=== PATIENT | female | born 1940 | race Caucasian/White ===

== ENCOUNTER 2023-08-13 13:06 | Inpatient (IN) | payer MEDICARE, OTHER, SELFPAY ==
[2023-08-09 11:03] VITALS: BMI 32.5
[2023-08-13] VITALS (24 sets, daily range): BP systolic 90–148; BP diastolic 42–85; BMI 30.8
--- NOTE | 2023-08-13 07:19 | PTCARENOTE ---
Pt arrived today for a PVI. Pt's lungs were clear upon arrival with a pulse ox of 92-93% on room air. As patient has been laying down in stretcher with head of bed elevated, pt has begun having audible wheezing and pulse ox dropping to 85% on room
air. Pt denies feeling SOB. No respiratory distress noted. + loose cough. Dr Mcintosh made aware via tiger text and Sissy NICHOLS at pt bedside assessing pt. Sissy NICHOLS states she spoke to Dr Carrasco who ordered a nebulizer. 4L NC applied. Respiratory
made aware. Awaiting treatment.
--- NOTE | 2023-08-13 07:48 | PTCARENOTE ---
Respiratory therapist at pt bedside administering nebulizer treatment.
[2023-08-13] MEDS: VENTOLIN NEBULES 2.5 MG INH ×2 (07:49→11:22)
--- NOTE | 2023-08-13 07:57 | PTCARENOTE ---
Addendum entered by Denice Guzman RN 08/13/23 08:02:
Pulse ox 88-91% on room air post nebulizer treatment. Pt continues with occasional loose cough. Awaiting to hear from Dr Mcintosh, anesthesia, to see if procedure will proceed. Will continue to monitor.
Original Note:
Nebulizer complete. Lungs with some scattered expiratory wheezes post nebulizer treatment. Dr Carrasco at pt bedside assessing pt. Will continue to monitor.
--- NOTE | 2023-08-13 08:05 | PTCARENOTE ---
Dr Mcintosh stating ok to proceed with procedure. EP staff made aware.
--- NOTE | 2023-08-13 08:29 | ITS.CL.ABL ---
Turbinated Bone Grinder - Ablation
Ablation
Procedure Report:
ELECTROPHYSIOLOGIC STUDY AND POSSIBLE ABLATION
DATE: August 13, 2023 � � � � � � � � � � � � �
Primary cook supervisor: Dr. Yinka Milan
INDICATION:
Symptomatic Atrial Fibrillation.
Persistent
HISTORY: See H and P.�
Symptomatic AF, poorly controlled with attempted medical therapy.
Underwent initial PVI October 14, 2018.� Did well for several years but has recurred with symptomatic atrial fibrillation poorly controlled with antiarrhythmic drug therapy, sotalol. She then underwent ablation October 2022.
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 Additionally she underwent left atrial posterior wall ablation resulting in both entrance and exit block of the
posterior wall. Programmed electrical stimulation then induced reentrant left atrial tachycardia which was mapped to the dome of the left atrium anteriorly at cycle length 420 ms which was successfully mapped and ablated with RF energy. Continued
programmed electrical stimulation then induced another left atrial tachycardia at a faster cycle length of 360 ms which was mapped as a micro reentrant atrial tachycardia just anterior to the ostium of the left atrial appendage. During RF ablation
this degenerated into atrial fibrillation which then required cardioversion.
She has developed symptomatic atrial tachycardia, poorly tolerating amiodarone and presents for mapping and ablation as well as consideration for antiarrhythmic drug loading post ablation with either sotalol or dofetilide (amiodarone was
discontinued 10 days ago).
HAS-BLED: 1
Age
CHADSVASc: 4
HTN
Age
F Gender
PRESENTING RHYTHM:� AF
HISTORY: See H and P.�
Symptomatic AF, poorly controlled with attempted medical therapy.
ANTIARRHYTHMIC DRUG: Sotalol discontinued 3 days prior
ANTICOAGULATION: DOAC
'TIME-OUT':� called and confirmed.
SEDATION/ANESTHESIA:� provided via the anesthesia department using general anesthesia.
PROCEDURE:
Ultrasound Guidance performed by wi was utilized for femoral venous Vascular Access b/l.
A decapolar CS catheter was placed within the CS for mapping and pacing.�
The intracardiac ultrasound catheter was positioned in the RA for continuous intracardiac ultrasound imaging.
Heparin bolus and infusion to target ACT at 300 -350 seconds was administered.� Transseptal puncture was performed.� This entailed advancing a sheath with dilator into the superior vena cava and withdrawing both (monitoring intracardiac ultrasound,
fluoroscopy and tip pressure) with the tip oriented toward the atrial septum.� The fossa ovalis was engaged (indicated by sudden displacement of the sheath tip as well as tenting of the fossa seen on intracardiac ultrasound).� Left atrial access
required a pass with the Brockenbrough needle extended.� Left atrial catheter position was confirmed by pressure monitoring as well as fluoroscopy. The sheath was advanced over the dilator and positioned in the left atrium.� The [employer]
multipolar mapping catheter was initially positioned through the transseptal sheath for high density mapping. The ablation catheter was then substituted. �
A 3-D map was created using Navex.� A 3-D reconstructed CT image was compared to the 3-D Navex map to assist in anatomic evaluation, mapping and ablation.
Mapping initially demonstrates atrial fibrillation which was cardioverted to sinus rhythm and electroanatomical mapping was begun. During mapping a somewhat irregular left atrial tachycardia with cycle length between 400 and 420 ms occurred.
During continued mapping tachycardia changed to a faster cycle length of 320 ms and more irregular. Mapping demonstrated complete isolation of the posterior wall of the left atrium as well as complete isolation of the pulmonary veins and a wide
area circumferential fashion. There is an area of marked fractionation along the left atrial septal wall just anterior to the joao of the right sided pulmonary veins. This is the proposed target for recurrence of atrial fibrillation and for her
atrial tachycardia. This area was ablated using a 4 mm irrigated contact sensing catheter at 30 W achieving LSI of 5 with each lesion. With each RF application, high output pacing was performed to avoid proximity to the phrenic nerve. At no point
was phrenic nerve activation present in any of the targeted areas. Cardioversion then restored sinus rhythm. Once again well mapping and irregular atrial tachycardia occurred with vacillating cycle length on the coronary sinus catheter sometimes
proximal to distal sometimes distal to proximal. There were periods where this settled into a more regular tachycardia proximal to distal at 420 ms. At this point the right atrium was mapped with the [employer] multipolar grid catheter but during
mapping of tachycardia degenerated into a very irregular rhythm and then atrial fibrillation. There is no identifiable target in the right atrium.
Next, cardioversion restored sinus rhythm.
An esophageal temperature probe was positioned at the level of the mid LA to delineate the course of the esophagus as well as monitor for any significant temperature increases during RF delivery. No posterior lesions were delivered. There is no
change in luminal esophageal temperature recordings.
� � �
� � � � � I.C.E. :
�� � � � � � � � � � � � � � � � � � � Pre-Ablation� � � � � � � � � Post-Ablation� � � � �
LVEF:� � � � � � � � � � � � � � � � � 55 %� � � � � � � � � � � � � � � 55 %
WMA: � � � � � � � � � � � � � � � � none� � � � � � � � � � � � � � � none
Pericardial effusion: � � � � � � none� � � � � � � � � � � � � � � none
COMPLICATIONS:
None
SUMMARY:�
- Mapping and ablation of atrial fibrillation
- Mapping and ablation of second tachycardia
- 3-D Electroanatomical Mapping
- Intracardiac Ultrasound
Post ablation, I discussed today's findings and results with the patient's significant other, Jt.
RECOMMENDATIONS:
- Observe in monitored bed.
- Maintain oral anticoagulation.
- Initiate dofetilide 500 mcg twice daily (corrected QT interval is 470 ms and GFR is greater than 50)
-Monitor corrected QT interval via serial EKGs as per protocol
-Monitor renal function closely, keep magnesium between 2 and 3 and potassium between 4 and 5
-Adjust dofetilide dosing accordingly as we monitor renal function and corrected QT interval
- Left atrial pressure is elevated with LA pressure of 20 mmHg.
-Lasix 20 mg IV now (she is typically on 20 mg p.o. as needed, typically needed when she develops atrial fibrillation)
- Office visit with me in 3 months.
- Continue cardiovascular care with Dr Milan
Copy to: Dr. Yinka Milan
[2023-08-13 09:20] LABS: ACT-LR - POC 329 Seconds (116-155)
[2023-08-13 09:41] LABS: ACT-LR - POC 355 Seconds (116-155)
--- NOTE | 2023-08-13 09:58 | W.CARD.TIKOS ---
Initiate Tikosyn
-
I verify that the patient has not taken any verapamil (Isoptin/Calan), ketoconazole (Nizoral), cimetidine (Tagamet), trimethoprim (Trimpex), trimethoprim/sulfamethoxazole (Bactrim), megesterol (Megace), prochlorperazine (Compazine),
hydrochlorothiazide (HCTZ), dolutegravir (Tivicay) or any Class I or Class III anti-arrhythmic within the last three days
AND
I verify that the patient has not taken amiodarone within the last THREE months, or that the patient's amiodarone plasma concentration is <0.3 mcg/mL.
(Last dose amiodarone 08/02/23, OK to start Tikosyn per Dr. Christofer Carrasco)
Does patient have a Ventricular Conduction Abnormality: No
I have assessed the baseline QTc interval (using QT for heart rate less than 60 bpm) and deemed the patient is appropriate for Dofetilide therapy. I understand that Tikosyn is contraindicated if the QTc is >440msec (500msec in patients with
ventricular conduction abnormalities).
Baseline QTc (in msec): 474
QTc interval is greater than 440msec without conduction abnormality OR greater than 500msec with a conduction abnormality, but acceptable to proceed per Cardiology attending.
Reason for Administration with Prolonged QTc: Other Atrial Arrhythmia
Ordering Physician: Bhaskar Carrasco
[2023-08-13] MEDS: LASIX 20 MG IV (10:45)
--- NOTE | 2023-08-13 10:50 | PTCARENOTE ---
Addendum entered by Denice Guzman RN 08/13/23 10:51:
Added to original note. Equal strength to bilateral upper extremities. Normal dorsal and plantar flexion. Pt arrived on 6L simple mask with pulse ox 100%. Pt with audible wheezing noted on arrival to recovery room. Pt's lungs with scattered
expiratory wheezes and fine rales 1/3 up bilaterally. Nebulizer ordered and respiratory notified. EKG obtained which states critical result for prolonged QT interval. Sissy HEATH made aware and given pt's current EKG as well as previous EKG.
Sissy Salvador states to hold tikosyn at this time and repeat EKG at 12 noon to determine if ok to give pt tikosyn. Lasix to be given as ordered. Will continue to monitor.
Original Note:
Received pt from PVI procedure drowsy but easily arousable. Pt quickly became awake, alert, and oriented x3, LUNDY. Pt following commands. Pt's speech is clear and appropriate. Pupils 3mm equal and reactive .
--- NOTE | 2023-08-13 11:24 | PTCARENOTE ---
Respiratory therapist at pt bedside administering nebulizer treatment.
--- NOTE | 2023-08-13 11:29 | PTCARENOTE ---
Pt appears to be going in and out of SR with PAC's and afib on bedside air sampling and monitoring. Pt also appears to have some inverted P waves at times while in SR. Sissy NICHOLS made aware and in to evaluate pt. Pt asymptomatic. Sissy NICHOLS states to obtain EKG at
scheduled 12:00 time. Will continue to monitor.
[2023-08-13] MEDS: TIKOSYN 500 MCG PO ×2 (13:18→22:00)
--- NOTE | 2023-08-13 13:33 | PTCARENOTE ---
received pt from [facility] into 2253, afib on tele w HR 88, bp 119/84, pox 96-98% on 3L NC- decreased to 2L. Pt denies CP or SOB. Tikosyn administered as ordered. plan of care reviewed and questions encouraged.
--- NOTE | 2023-08-13 14:20 | PTCARENOTE ---
figure 8 sutures removed
--- NOTE | 2023-08-13 16:01 | PTCARENOTE ---
pt was assisted OOB without incident.
[2023-08-13] MEDS: ELIQUIS 5 MG PO (16:41)
--- NOTE | 2023-08-13 20:00 | PTCARENOTE ---
assumed care of pt from previous RN. pt A&Ox4, independent in room. no c/o pain at this time. A fib on tele-monitor, HR 90s-100s. POX 92% on RA. lungs clear to auscultation. PIV intact. plan of care discussed w/ pt, pt verbalizes understanding. see
worklist for complete nursing assessment, interventions, VS, and I&Os.
[2023-08-13] MEDS: TOPROL XL 75 MG PO (20:56)
[2023-08-14] VITALS (8 sets, daily range): BP systolic 92–146; BP diastolic 66–108
[2023-08-14] MEDS: VENTOLIN NEBULES 2.5 MG INH ×2 (00:06→09:19)
[2023-08-14 04:07] LABS: Hematocrit 28.7 % (37.0-47.0); Hemoglobin 9.5 g/dL (12.0-16.0); Mean Corp Hgb Conc. 33.1 g/dL (33.0-37.0); Mean Corpuscular Hgb 29.2 pg (27.0-31.0); Mean Corpuscular Volume 88.3 fL (81.0-99.0); Mean Platelet Volume 8.8 fL (7.4-10.4); Platelet Count 167 10^3/uL (130-400); Red Blood Cell Count 3.25 10^6/uL (4.20-5.40); Red Cell Dist. Width 16.8 % (11.5-14.5); White Blood Cell Count 7.4 10^3/uL (4.8-10.8)
[2023-08-14 04:45] LABS: Blood Urea Nitrogen 22 mg/dl (7-17); Calcium 8.2 mg/dl (8.4-10.2); Carbon Dioxide 28 mmol/L (22-30); Chloride 102 mmol/L (98-107); Estimated Creatinine Clearance 48 ml/min; Glucose 87 mg/dl (70-99); Magnesium 2.1 mg/dl (1.6-2.3); Sodium 135 mmol/L (135-145); eGFR > 60.00
[2023-08-14] MEDS: ARIMIDEX 1 MG PO (08:13)
[2023-08-14] MEDS: LASIX 20 MG PO (08:13)
[2023-08-14] MEDS: ELIQUIS 5 MG PO ×2 (08:13→20:13)
[2023-08-14] MEDS: NORVASC 2.5 MG PO (08:14)
[2023-08-14] MEDS: TOPROL XL 75 MG PO (08:14)
[2023-08-14] MEDS: TIKOSYN 500 MCG PO ×2 (08:14→20:13)
[2023-08-14] MEDS: COZAAR 100 MG PO (08:14)
--- NOTE | 2023-08-14 08:40 | W.PN.CARDCBS ---
Today's Communication / Plan
-
Tikosyn #3 and 4 today
monitor QTc, tele
NPO for possible CVN in AM
PA/LAT CXR
supplemental O2 w/ATC albuterol MN
covid swab
Impression / Plan
-
PCP: Roman Luke MD
CDY: Yinka Milan MD
82 y/o, PMH sig for PAF w/prior PVI 09/2018, redo PVI with Left AT RFA in 10/2022, now presents with recurrent symptomatic AF/AT, associated w/dyspnea, LE edema. [id number]=5, maintained on eliquis. Had been taking amiodarone recently, just stopped
on 08/03/23. In holding pre-procedure, she developed hypoxia with wheezing, congestion and cough, O2 sat down to mid 80s. Supplemental O2 applied and given albuterol mn with improved O2 sats and breathing. She admits to a recent cold with a cough
about a week ago, but has felt fine since, and has no history of pulmonary issues, non smoker.
Presented to EP lab- s/p redo PVI with mapping demonstrating complete isolation of pulm veins, underwent LA septal wall ablation, with some AT noted but no identifiable targets, was cardioverted in OR
Admitted post procedure for tikosyn load. She has history of prolonged QT on sotalol.
Was in SR in recovery but rhythm changed to AF w/rates low 100.
IMPRESSION:
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
Prior PVI (09/2018, redo 10/2022)
S/P Redo PVI with limited ablation, recurrent AF post procedure
Tikosyn initiation
Prolonged QT on Sotalol
Respiratory distress w/hypoxia
HTN
Chronic diastolic HFpEF
Left Breast Ca, s/p tram flap reconstruction w/resultant LUE lymphedema
PLAN:
Tele- AFib w/rates 100s
Tolerating Tikosyn- QTc <400 at this time, on dose #3 this morning
Will make NPO for possible CVN in AM if she does not convert spontaneously
Continue eliquis, metoprolol
Hypoxia noted- O2 sat mid 80s this morning on RA- audible wheezing with congestion/cough- afebrile, WBC WNL
supplemental O2 to keep SaO2>92%, CXR today, stat albuterol MN and change to QID today, check covid swab.
may need pulm consult, consider steroid course if no improvement.
One time IV lasix post procedure for moderately elevated RA pressures, will resume lasix 20mg daily- she had been taking PRN only.
monitor on tele for another 24 hours for full tikosyn load, monitor QTc with possible CVN in AM if no conversion
anticipate discharge in next 24-[address] Milan as scheduled
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
Subjective
Date of Service: August 14, 2023
C/O chest congestion, cough, dyspnea, difficulty getting a full breath
Denies cp/palps/groin pain
oob to chair, bathroom
Objective
Labs:
08/14/23 03:55
08/14/23 03:55
Labs
Hgb 9.5 g/dL (12.0-16.0) L 08/14/23 03:55
Hct 28.7 % (37.0-47.0) L 08/14/23 03:55
Plt Count 167 10^3/uL (130-400) D 08/14/23 03:55
Sodium 135 mmol/L (135-145) 08/14/23 03:55
Potassium 4.0 mmol/L (3.5-5.1) 08/14/23 03:55
BUN 22 mg/dl (7-17) H 08/14/23 03:55
Creatinine 0.9 mg/dL (0.6-1.0) 08/14/23 03:55
Glucose 87 mg/dl (70-99) 08/14/23 03:55
Vital Signs and I&O:
Vital Signs
Temp Pulse Resp BP Pulse Ox
98.3 F 102 14 136/100 91
08/14/23 07:05 08/14/23 08:14 08/14/23 07:05 08/14/23 08:14 08/14/23 07:05
Vital Signs
Temp Pulse Resp BP Pulse Ox
98.3 F 102 14 136/100 91
08/14/23 07:05 08/14/23 08:14 08/14/23 07:05 08/14/23 08:14 08/14/23 07:05
Intake & Output
08/12/23 08/13/23 08/14/23 08/15/23
06:59 06:59 06:59 06:59
Intake Total 750 / 750
Output Total 500 / 500
Balance 250 / 250
Physical Exam
Physical Exam
AAOx3, MAEE 5/5
Irreg irreg S1 S2 no murmurs, distant HS
bilateral congestion throughout with wheezing and rhonchi, audible wheezing noted without stethoscope
mild dyspnea and pulse ox 87% on RA
soft abd, + bs
bilat groin sites VINI, no ht/bleeding, non tender
bilat extremities w/palpable distal pulses, no edema
LUE w/chronic lymphedema, palpable pulse- at baseline per pt
--- NOTE | 2023-08-14 09:12 | CM ---
spoke to pt in room, she is prev indep, lives alone in a 2 story home with 4 steps to enter. she denies any dme's or dc planning needs. plan is for dc to home when medically stable.
--- NOTE | 2023-08-14 09:15 | CM ---
priced dofetilide with pts perspription plan [facility] ([phone])- ID# [id number]- dofetilide first month is $ 337.43- which includes her deductible, after that her copay is $118.10/month-
JULIÁN also checked [facility] prices as dofetilide is generic, she can get dofetilide at [facility] in [facility] for $43/month- 500mcg or $59.67 for 250mcg. she is agreeable to using [facility]. TEE Du aware to send script to [facility] in
[facility] at time of dc. cm to print [facility] coupon for pt when dose is determined.
--- NOTE | 2023-08-14 09:23 | CM ---
priced dofetilide with pts perspription plan marcus kate )- dofetilide first month is $ 337.43- which includes her deductible, after that her copay is $118.10/month-
JULIÁN also checked [facility] prices as dofetilide is generic, she can get dofetilide at [facility] in [facility] for $43/month- 500mcg or $59.67 for 250mcg. she is agreeable to using [facility]. TEE Du aware to send script to [facility] in
[facility] at time of dc. julián to print [facility] coupon for pt when dose is determined.
[2023-08-14 10:45] LABS: COVID-19 Antigen Positive (Negative)
--- NOTE | 2023-08-14 11:16 | CON.PUL ---
Consultation
Consultation Request
Date/Time Consultation Requested: 08/14/2023
Date/Time Consultation Performed: 08/14/2023
Requesting Provider: Dr. Carrasco
Performing Provider: Dr. Tacos Bo
Reason for Consultation: SARS Cov 2
Medical History
-
History of Present Illness:
82-year-old woman with history of paroxysmal atrial fibrillation, history of prior PVI in September 2018 and again on 10/2022 presented with recurrent atrial fibrillation with associated dyspnea, lower extremity swelling. Patient is already on
anticoagulation. Has been taking amiodarone in the outpatient setting.
Patient has developed hypoxemia, wheezing, congestion and coughing with oxygen saturation dropping to the mid 80s.
Patient reports 7-8 week with symptoms of URI symptoms without fevers.
Patient is a never smoker and never had any pulmonary symptoms in the past.
She was admitted for a Tikosyn load. Apparently had prior history of prolonged QT on sotalol.
COVID testing was positive. We were consulted for evaluation of this.
Chest x-ray showed marked megaly without infiltrates.
Past Medical History
Past Medical History: Other (See assessment and plan section)
Social History
Tobacco: Non-smoker
Alcohol: None
Drug: None
Family History
Family History: Reviewed & Not Pertinent
Allergies / Home Medications
Allergies
Allergy/AdvReac Type Severity Reaction Status Date / Time
banana Allergy stomach Verified 08/13/23 06:47
upset
codeine Allergy Anaphylaxis Verified 08/13/23 06:47
diltiazem [From Cardizem] Allergy Rash Verified 08/13/23 06:47
Home Medications
Medication Instructions Recorded Confirmed Last Taken Type
amlodipine 2.5 mg tablet 2.5 mg PO DAILY 10/14/18 08/13/23 08/12/23 08:00 History
apixaban 5 mg tablet (Eliquis) 5 mg PO BID 10/14/18 08/13/23 08/12/23 08:00 History
losartan 100 mg tablet 100 mg PO DAILY 10/14/18 08/13/23 08/12/23 08:00 History
multivitamin (One Daily 1 ea PO DAILY 10/14/18 08/13/23 08/12/23 06:00 History
Multivitamin tablet)
B12 1 dose IM MONTHLY 09/21/22 08/13/23 1 Week Ago History
~08/06/23
Combination Beet, Payton, Turmeric 1 gummy PO DAILY 08/13/23 08/13/23 08/12/23 06:00 History
Combination Beet, Payton, Turmeric 4 oz PO DAILY 08/13/23 08/13/23 08/12/23 06:00 History
Combination Mushroom, Reishi, 1 cap PO DAILY 08/13/23 08/13/23 08/12/23 06:00 History
Khang Dexter
anastrozole 1 mg tablet (Arimidex) 1 mg PO DAILY 08/13/23 08/13/23 08/12/23 08:00 History
calcium carbonate 600 mg calcium 600 mg PO DAILY 08/13/23 08/13/23 08/12/23 06:00 History
(1,500 mg) tablet (Calcium)
furosemide 20 mg tablet 20 mg PO DAILYPRN PRN swelling 08/13/23 08/13/23 08/12/23 12:00 History
metoprolol succinate 50 mg 75 mg PO BID 08/13/23 08/13/23 08/12/23 20:00 History
tablet,extended release 24 hr
zoledronic acid 5 mg/100 mL in 5 mg IV ONCE 08/13/23 08/13/23 11/22/22 History
mannitol 5 %-water intravenous
piggybck (Reclast)
Review of Systems
-
History Source: Patient and Coordinating Provider
Vitals / Labs / Diagnostic Testing
Vital Signs
Temp Pulse Resp BP Pulse Ox
98.3 F 106 18 136/100 91
08/14/23 07:05 08/14/23 09:21 08/14/23 09:21 08/14/23 08:14 08/14/23 07:05
Lab Data
08/14/23 03:55
08/14/23 03:55
Diagnostic Testing:
Physical Exam
-
HEENT: Normocephalic
Cardiovascular: S1/S2
Respiratory: Wheeze (Expiratory bilaterally) and Non-Labored Respirations
GI: Soft and Non Distended
Neurology: Awake and Alert
Skin: Warm
General: Respiratory Distress (n)
Assessment
-
82-year-old woman with past medical history significant for atrial fibrillation, admitted for Tikosyn load due to recurrent atrial fibrillation. Reports 1 week worth of URI symptoms, found to be short of breath, wheezing and hypoxemic.
COVID-positive. We were consulted for management of this.
SARS Cov 2 infection
>7days onset of symptoms
CXR without infiltrate
Hypoxemia - without infiltrate.
Bronchospasm
-
Conditions present prior admission:
Symptomatic atrial fibrillation
Hypertension
Chronic heart failure with preserved ejection fraction
History of left breast cancer status post reconstruction, residual left upper extremity lymphedema.
Hypertension
Obesity
-
Assessment and plan:
Patient reports that symptom onset was about 8 days ago, mainly upper airways and some shortness of breath.
Has developed bronchospasm for the last 48 hours.
Already feels better after nebulizer.
On exam with some expiratory wheezing but good air movement. No crackles.
Chest x-ray reviewed without evidence of pneumonitis.
During my evaluation pulse ox was 94% on room air.
-
Based on duration of symptoms: Paxlovid or remdesivir unlikely to offer any benefit. Usually indicated if symptoms onset less than 8 days.
-
Continue symptomatic management
Continue isolation-total of 10 days while in the hospital. Last day of isolation will be Sunday the . Patient started with symptoms on Sunday, 04 August. Discussed with primary team
Hold nebulizers while on isolation-albuterol HFA as needed will be provided PRN.
Will add Xopenex HFA 3 times a day standing dose.
Discussed with respiratory therapy.
Given bronchospasm will start prednisone at 40 mg X 2 days, 30 mg X 2 days and 20 mg X 2 days.
-
Will continue to monitor.
-
Okay to continue with cardiac management
Hopefully can perform cardioversion tomorrow.
-
Recommend short-term follow-up in the pulmonary office due to her bronchospasm.
Will follow
--- NOTE | 2023-08-14 11:20 | W.PN.UPDATE ---
Update Note
Progress Note Update
CXR with mild cardiomegaly but no active disease.
COVID swab positive.
Will consult pulmonary now.
If paxlovid is considered, will have to adjust eliquis to 2.5mg BID. Tikosyn will have to be stopped d/t prolonged QT with the combo. If this is the case, would have to return at a future date for a full tikosyn initiation.
Discussed w/Dr. Carrasco.
--- NOTE | 2023-08-14 12:00 | PTCARENOTE ---
covid test done per orders. Result came back positive. Sign placed on door and cart ordered from [facility]. Patient made aware as well as MD.
[2023-08-14] MEDS: DELTASONE 40 MG PO (13:13)
[2023-08-14] MEDS: XOPENEX HFA 45 MCG INHALER 1 PUFF INH ×2 (13:29→20:08)
--- NOTE | 2023-08-14 20:00 | PTCARENOTE ---
Addendum entered by Tiffany Peng RN 08/15/23 00:24:
Tikosyn dose #4 administered and f/u ekg obtained.
Original Note:
Assumed care of pt. Aox3. Afib. VSS. Remains on precautions d/t covid. Independent in room. Assessment per nursing flowsheet. Plan for cardioversion and possible discharge tomorrow. NPO after midnight
[2023-08-14] MEDS: TOPROL XL 100 MG PO (20:14)
[2023-08-15 04:17] VITALS: BP 132/84
[2023-08-15 04:32] LABS: Hematocrit 30.5 % (37.0-47.0); Hemoglobin 10.2 g/dL (12.0-16.0); Mean Corp Hgb Conc. 33.4 g/dL (33.0-37.0); Mean Corpuscular Hgb 29.8 pg (27.0-31.0); Mean Corpuscular Volume 89.2 fL (81.0-99.0); Mean Platelet Volume 9.2 fL (7.4-10.4); Platelet Count 211 10^3/uL (130-400); Red Blood Cell Count 3.42 10^6/uL (4.20-5.40); Red Cell Dist. Width 17.2 % (11.5-14.5); White Blood Cell Count 10.2 10^3/uL (4.8-10.8)
[2023-08-15 05:16] LABS: Blood Urea Nitrogen 21 mg/dl (7-17); Calcium 8.4 mg/dl (8.4-10.2); Carbon Dioxide 28 mmol/L (22-30); Chloride 102 mmol/L (98-107); Estimated Creatinine Clearance 54 ml/min; Glucose 110 mg/dl (70-99); Magnesium 2.2 mg/dl (1.6-2.3); Potassium 4.1 mmol/L (3.5-5.1); Sodium 138 mmol/L (135-145); eGFR > 60.00
[2023-08-15] MEDS: XOPENEX HFA 45 MCG INHALER 1 PUFF INH ×2 (07:09→12:22)
[2023-08-15 08:11] VITALS: BP 138/100
[2023-08-15] MEDS: NORVASC 2.5 MG PO (08:17)
[2023-08-15] MEDS: COZAAR 100 MG PO (08:17)
[2023-08-15] MEDS: LASIX 20 MG PO (08:17)
[2023-08-15] MEDS: TIKOSYN 500 MCG PO (08:17)
[2023-08-15] MEDS: TOPROL XL 100 MG PO (08:18)
[2023-08-15] MEDS: DELTASONE 40 MG PO (08:18)
[2023-08-15] MEDS: ARIMIDEX 1 MG PO (08:18)
[2023-08-15] MEDS: ELIQUIS 5 MG PO (08:19)
--- NOTE | 2023-08-15 09:04 | PTCARENOTE ---
Rec'd pt AAOx3 w/no c/o CP at this time. Pt is mildly dyspneic on exertion, but reports 'feeling better after getting breathing treatments & the oral steroids'. 5th dose of PO Tikosyn administered as ordered & Dr Carrasco in to see pt re: plan for
cardioversion this AM. Pt NPO since midnight in preparation for procedure. 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 Pt w/call quinonez within reach & plan of care ongoing.
--- NOTE | 2023-08-15 09:27 | W.PN.CARDCBS ---
Today's Communication / Plan
-
continue Tikosyn loading
DCCV today
plan for d/c home this afternoon
Impression / Plan
-
PCP: Roman Luke MD
CDY: Yinka Milan MD
82 y/o, PMH sig for PAF w/prior PVI 09/2018, redo PVI with Left AT RFA in 10/2022, now presents with recurrent symptomatic AF/AT, associated w/dyspnea, LE edema. [id number]=1, maintained on eliquis. Had been taking amiodarone recently, just stopped
on 08/03/23. In holding pre-procedure, she developed hypoxia with wheezing, congestion and cough, O2 sat down to mid 80s. Supplemental O2 applied and given albuterol mn with improved O2 sats and breathing. She admits to a recent cold with a cough
about a week ago, but has felt fine since, and has no history of pulmonary issues, non smoker.
Presented to EP lab- s/p redo PVI with mapping demonstrating complete isolation of pulm veins, underwent LA septal wall ablation, with some AT noted but no identifiable targets, was cardioverted in OR
Admitted post procedure for tikosyn load. She has history of prolonged QT on sotalol.
Was in SR in recovery but rhythm changed to AF w/rates low 100.
IMPRESSION:
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
Prior PVI (09/2018, redo 10/2022)
S/P Redo PVI with limited ablation, recurrent AF post procedure
Tikosyn initiation
Prolonged QT on Sotalol
Respiratory distress w/hypoxia
COVID+ 08/04 start if symptoms
HTN
Chronic diastolic HFpEF
Left Breast Ca, s/p tram flap reconstruction w/resultant LUE lymphedema
PLAN:
Tele- AFib w/rates 100s
Tolerating Tikosyn- QTc <400 at this time, on dose #5 this morning, then DCCV this am
Continue Eliquis, metoprolol increased from 75-100mg bid, HR remains 90-110's, will see after DCCV if we should keep metoprolol at 100mg or d/c at 75mg
COVID + symptoms started 08/04, isolation for 10 days, Hypoxia improved- 92% RA- afebrile, WBC WNL
appreciate pulm recs - continue prednisone tape 30mg x 2 d, 20mg x 2 day, then stop
continue Xopenex tid for now
Will change lasix to daily was only taking PRN, check BMP in 1 week, keep K >4, Mg>[address] Milan as scheduled
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
Subjective
Date of Service: August 15, 2023
no cp, sob much improved
Objective
Labs:
08/15/23 04:17
08/15/23 04:17
Labs
Hgb 10.2 g/dL (12.0-16.0) L 08/15/23 04:17
Hct 30.5 % (37.0-47.0) L 08/15/23 04:17
Plt Count 211 10^3/uL (130-400) D 08/15/23 04:17
Sodium 138 mmol/L (135-145) 08/15/23 04:17
Potassium 4.1 mmol/L (3.5-5.1) 08/15/23 04:17
BUN 21 mg/dl (7-17) H 08/15/23 04:17
Creatinine 0.8 mg/dL (0.6-1.0) 08/15/23 04:17
Glucose 110 mg/dl (70-99) H 08/15/23 04:17
Vital Signs and I&O:
Vital Signs
Temp Pulse Resp BP Pulse Ox
98.3 F 109 20 138/100 92
08/15/23 08:15 08/15/23 08:11 08/15/23 08:15 08/15/23 08:11 08/15/23 08:15
Vital Signs
Temp Pulse Resp BP Pulse Ox
98.3 F 109 20 138/100 92
08/15/23 08:15 08/15/23 08:11 08/15/23 08:15 08/15/23 08:11 08/15/23 08:15
Intake & Output
08/13/23 08/14/23 08/15/23 08/16/23
06:59 06:59 06:59 06:59
Intake Total 750 / 750 250 / 250
Output Total 500 / 500
Balance 250 / 250 250 / 250
Physical Exam
Physical Exam
NAD, AOX3
S1, S2, Irreg irreg, no murmur
exp wheeze b/l bases, no rales or rhonchi
SNTND bsx4
--- NOTE | 2023-08-15 11:36 | PTCARENOTE ---
Report given to Mary Jane in the EP lab & pt taken via wheelchair for cardioversion at 1135. Plan of care ongoing.
[2023-08-15 12:47] VITALS: BP 141/90
[2023-08-15 13:00] VITALS: BP 135/75
--- NOTE | 2023-08-15 13:00 | PTCARENOTE ---
Rec'd report from Mary Jane & rec'd pt back from EP lab AAOx3 & able to ambulate from stretcher to bed on her own w/supervision. Pt's VS stable w/HR now in the 60's. Pt SR w/rare PVCs on telemetry monitoring. Pt's SpO2 sats improved at 95% on RA. Pt
reports feeling 'much better' & anticipating D/C this afternoon. Plan of care ongoing at this time.
--- NOTE | 2023-08-15 13:18 | W.PN.ANS.POP ---
Anesthesia Post Operative
- Anesthesia Post Op Note
Airway Patent: Yes
Adequate Pain Control: Yes
Change in Mental Status: No
Current Postoperative Nausea & Vomiting: No
Anesthesia Complications: No
General Anesthetic Recall: No
Unplanned Admission: No
Post Op Hydration Adequate: Yes
--- NOTE | 2023-08-15 14:16 | W.DS.TRANS ---
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
-
Discharge Instructions:
Sleep Apnea Risk Low
Discharge Diagnosis/Procedures AFib, s/p attempted ablation, Tikosyn initiation
, COVID +
Diet Low Cholesterol
Driving Restrictions No driving for 24 hours
Stop these medications: STOP amiodarone completely- do not restart.
Decrease metoprolol to 50mg twice daily
Instructions:
Stand-Alone Forms: DC Instructions- Cath/EP Lab
Changes to Home Medications: Yes
Discharge Medications:
DC Medications w/original date entered in [employer]
amlodipine 2.5 mg tablet 2.5 mg PO DAILY 10/14/18
apixaban 5 mg tablet (Eliquis) 5 mg PO BID 10/14/18
losartan 100 mg tablet 100 mg PO DAILY 10/14/18
multivitamin (One Daily Multivitamin tablet) 1 ea PO DAILY 10/14/18
B12 1 dose IM MONTHLY 09/21/22
Combination Beet, Payton, Turmeric 1 gummy PO DAILY 08/13/23
Combination Beet, Payton, Turmeric 4 oz PO DAILY 08/13/23
Combination Mushroom, Reishi, Shitake, Maitake 1 cap PO DAILY 08/13/23
anastrozole 1 mg tablet (Arimidex) 1 mg PO DAILY 08/13/23
calcium carbonate 600 mg calcium (1,500 mg) tablet (Calcium) 600 mg PO DAILY 08/13/23
zoledronic acid 5 mg/100 mL in mannitol 5 %-water intravenous piggybck (Reclast) 5 mg IV ONCE 08/13/23
dofetilide 500 mcg capsule 500 mcg PO BID #60 caps 08/15/23
furosemide 20 mg tablet 20 mg PO DAILY #1 tab 08/15/23
metoprolol succinate 50 mg tablet,extended release 24 hr 50 mg PO BID #0 tabs 08/15/23
prednisone 10 mg tablet 10 mg PO DIRECTED #10 tabs 08/15/23
Home Medication Changes
new to dofetilitde, daily lasix 20mg from PRN, decrease metoprolol to 50 bid from 75 bid, continue prednisone taper as directed
Pending Results: No
--- NOTE | 2023-08-15 15:00 | PTCARENOTE ---
Pt discharged to w/friend providing transportation. Pt left w/personal belongings incl clothing & prescriptions. Pt driven hm by family friend.
--- NOTE | 2023-08-15 15:04 | CM ---
CM following for DC planning needs.
Met w/ patient at bedside. Pt. is hopeful for DC today and feels prepared to go home.
Good RX coupons provided for Dofetilide. Rx for x3 d supply placed in chart by KUMAR.
Plan is for home without needs.
== END 2023-08-15 15:12 | disposition home or self-care (01) | DRG 273 ==
LOC: IVU 13:06
PROVIDERS: Internal Medicine; Nurse Practitioner; ADMITTING PHYSICIAN Internal Medicine Cardiovascular Disease; CONSULT PHYSICIAN Internal Medicine Critical Care Medicine; FAMILY PHYSICIAN Internal Medicine
PROC: 3E033RZ Introduction of Antiarrhythmic into Peripheral Vein, Percutaneous Approach (ICD-10-PCS; 2023-08-13)
PROC: 02K83ZZ Map Conduction Mechanism, Percutaneous Approach (ICD-10-PCS; 2023-08-13)
PROC: 02583ZZ Destruction of Conduction Mechanism, Percutaneous Approach (ICD-10-PCS; 2023-08-13)
PROC: 5A2204Z Restoration of Cardiac Rhythm, Single (ICD-10-PCS; 2023-08-15)
DX: I47.19 Other supraventricular tachycardia (principal); U07.1 COVID-19; I50.32 Chronic diastolic (congestive) heart failure; I48.19 Other persistent atrial fibrillation; I11.0 Hypertensive heart disease with heart failure; J98.01 Acute bronchospasm; R09.02 Hypoxemia; E66.9 Obesity, unspecified; Z68.30 Body mass index [BMI] 30.0-30.9, adult; Z79.01 Long term (current) use of anticoagulants; Z85.3 Personal history of malignant neoplasm of breast
CPT/HCPCS: 71046; 76937; 80048; 83735; 85027; 85347; 87811; 92960; 93005; 93655; 93656; 94640; C1730; C1732; C1759; C1766; C1892; C1894; C2630

== ENCOUNTER → 2024-10-09 07:41 | Outpatient (REF) | payer MEDICARE, OTHER, SELFPAY | LOC: PAVMRI 07:41 | PROVIDERS: ATTENDING PHYSICIAN Internal Medicine Cardiovascular Disease; FAMILY PHYSICIAN Internal Medicine | DX: I42.9 Cardiomyopathy, unspecified (principal); I50.22 Chronic systolic (congestive) heart failure | CPT/HCPCS: 75561; 75565; A9585 ==